=== PATIENT | female | born 1975 | race African-American/Black ===

== ENCOUNTER 2021-02-16 16:47 | Emergency (ER) | payer SELFPAY ==
[~2021-02-16] VITALS: Ht 165.1 cm; Wt 68.9 kg
[2021-02-16] MEDS ORDERED: CEPH500T PO (17:46)
[2021-02-16] MEDS ORDERED: CLIN300C12 PO (17:46)
--- NOTE | 2021-02-16 17:50 | NUR ---
Patient discharged to home in stable condition. Written and verbal after care instructions given. Patient verbalizes understanding of instructions. Stressed follow up or return to ER for worsening s/s.
== END 2021-02-16 17:51 | disposition home or self-care (01) ==
LOC: ER 16:52
DX: L02.416 Cutaneous abscess of left lower limb (principal); L03.116 Cellulitis of left lower limb; S80.9 Unspecified superficial injury of knee and lower leg; W19.XXXS Unspecified fall, sequela; R03.0 Elevated blood-pressure reading, without diagnosis of hypertension; Z88.2 Allergy status to sulfonamides; Z88.8 Allergy status to other drugs, medicaments and biological substances
CPT/HCPCS: 10061; 76942; 99284; J3490; A4663; J7030

== ENCOUNTER 2021-02-18 18:30 | Emergency (ER) | payer OTHER ==
[~2021-02-18] VITALS: Ht 165.1 cm; Wt 68.0 kg
[~2021-02-18 18:30] MED LIST: CEPH500T PO; CLIN300C12 PO
== END 2021-02-18 18:56 | disposition home or self-care (01) ==
LOC: ER 18:30
DX: Z48.817 Encounter for surgical aftercare following surgery on the skin and subcutaneous tissue (principal); L02.416 Cutaneous abscess of left lower limb; L73.2 Hidradenitis suppurativa; F17.210 Nicotine dependence, cigarettes, uncomplicated
CPT/HCPCS: A4663